=== PATIENT | female | born 1985 | race Caucasian/White ===

== ENCOUNTER 2018-08-03 15:53 | Outpatient (CLI) | payer OTHER, SELFPAY ==
[2018-08-03 17:02] LABS: *AMPHETAMINES SCREEN URINE Negative (Negative); *BARBITURATES SCREEN URINE Negative (Negative); *BENZODIAZEPINES SCREEN URINE Negative (Negative); Cannabinoids THC Negative (Negative); Cocaine Screen,Urine Negative (Negative); METHADONE URINE SCREEN Negative (Negative); OPIATES URINE SCREEN Negative (Negative)
[2018-08-03 17:09] LABS: Tricyclic Antidepressants Negative (Negative)
[2018-08-10 08:44] LABS: Buprenorphine Negative; Norbuprenorphine Negative
== END 2018-08-03 16:13 ==
PROVIDERS: PCP Nurse Practitioner Family; Visit Provider Nurse Practitioner
DX: Z34.91 Encounter for supervision of normal pregnancy, unspecified, first trimester (principal)
CPT/HCPCS: 80307; 87086

== ENCOUNTER 2018-08-04 10:43 | Outpatient (CLI) | payer OTHER, SELFPAY ==
[2018-08-04 11:19] LABS: Abs Immature Grans 0.02 k/cumm (0.0-0.09); Absolute Basophil Count 0.03 k/cumm (0.0-0.2); Absolute Eosinophil Count 0.11 k/cumm (0.0-0.7); Absolute Lymphocyte Count 1.49 k/cumm (1.2-3.4); Absolute Monocyte Count 0.47 k/cumm (0.11-0.7); Absolute Neutrophil Count 6.57 k/cumm (1.2-6.7); Basophils % 0.3; Eosinophils % 1.3; HCT 39.2 % (36.0-46.0); HGB 13.3 g/dL (12.0-15.5); Immature Grans % 0.2; Lymphocytes % 17.1; Mean Corp. HGB Concentration 33.9 g/dL (32.0-36.0); Mean Corpuscular Hemoglobin 30.9 pg (27.0-33.0); Mean Corpuscular Volume 91.2 fL (80-95); Mean Platelet Volume 9.2 fL (8.0-11.0); Monocytes % 5.4; Neutrophils % 75.7; Platelet Count 338 x1000/uL (130-400); RBC Distribution Width 13.1 % (11.7-14.6); White Blood Cell Count 8.69 k/cumm (4.4-10.8)
[2018-08-04 12:01] LABS: TSH (W/Ref FT4) 0.81 uIU/mL (0.358-3.74)
[2018-08-06 11:27] LABS: Hepatitis B Surface Ag Negative (NEGAT)
[2018-08-06 11:28] LABS: HIV-1/2 Ag & Ab Screen Negative (NEGAT)
[2018-08-06 11:47] LABS: Rubella IgG Ab (UVM) Positive; Syphilis Serology (RPR) Negative (Negative); Varicella IgG Antibody Positive
[2018-08-06 11:49] LABS: Hepatitis C Ab w Rflx HCV PCR Negative (NEGAT)
== END 2018-08-04 11:03 ==
PROVIDERS: PCP Nurse Practitioner Family; Visit Provider Nurse Practitioner
DX: Z34.91 Encounter for supervision of normal pregnancy, unspecified, first trimester (principal); Z11.4 Encounter for screening for human immunodeficiency virus [HIV]; Z11.59 Encounter for screening for other viral diseases; Z01.84 Encounter for antibody response examination
CPT/HCPCS: 36415; 80055; 86787; 86803; 86850; 86900; 86901; 87340; 87389; 84443; 86592; 86762

== ENCOUNTER 2018-08-08 09:19 | Outpatient (CLI) | payer SELFPAY ==
[2018-08-08 09:52] LABS: Kit/Specimen SENT
== END 2018-08-08 09:39 ==
PROVIDERS: PCP Nurse Practitioner Family; Visit Provider Advanced Practice Midwife
DX: Z34.81 Encounter for supervision of other normal pregnancy, first trimester (principal)
CPT/HCPCS: 36415

== ENCOUNTER 2018-09-28 00:17 | Outpatient (CLI) | payer OTHER, SELFPAY ==
--- NOTE | 2018-09-28 15:25 | DI.US_ITS ---
SYMPTOMS/DIAGNOSIS: SURVEY, Z34.90 OB ULTRASOUND: Many abnormalities cannot be diagnosed. A normal exam does not exclude a congenital anomaly. Radiology No. [id number] LMP: Exam Date: [facility] wks days on EDC ([facility]) 02/27/19 Confirmed: HISTORY: PREDICTED GESTATIONAL AGE NUMBER 18+2 weeks with a range of 18+1 weeks to 18+3 weeks. 1 Determined by___1STUS___LMP___HISTORY PLACENTA PRESENTATION Grade I Cephalic___ Anterior_X__Posterior___ Breech____ Right Left Transverse(head right___ Fundal___Low-lying___Previa___ Transverse(head left___ Varying__X____ BIOMETRY AMNIOTIC FLUID BPD: 42 mm 18+5 weeks Normal HC: 158 mm 18+5 weeks AC: 139 mm 19+2 weeks FL: 29 mm 19 weeks AMNIOTIC FLUID INDEX >26 WK CRL: mm weeks Cisterna Magna: 5 mm CI: 77 RUQ: LUQ Cerebellum: 1.95 cm EFW: 274 grams Percentile: 90th RLQ: LLQ Total: cms Composite AGE= 19 wks EDC by US: 02/22/2019 BIOPHYSICAL PROFILE ANATOMY IDENTIFIED SCORE 0/2 Heart: 4-Chamber_X__Rate:BPM LVOT:____X RVOT:__X Amniotic Fluid(>2cms)____ Stomach:___X____ Kidneys:___X____ Respirations (>30 secs) Bladder:____X____ Post. Fossa:__X Body Flex/Extension 3-vessel cord:__X Ventricles:___X Cord insertion:__X___ Lips:_X___ Extremity Flex/Extension Spinal morphology:___X Nose:__X___ Total Score= Palate:___X____ NS=not seen COMMENTS: The fetus was in variable position during the exam. The placenta is anterior. The biometric measurements correspond to 19 weeks 0 days. Small echogenic focus is noted in the left ventricle, which may be an incidental finding. There is a mild association with trisomy 21 and trisomy 13. No additional findings are identified. The amount of amniotic fluid appears normal. IMPRESSION: A 19-week 0-day fetus. An echogenic focus is seen in the left ventricle, which likely represents an incidental finding.
== END 2018-09-28 00:37 ==
PROVIDERS: PCP Nurse Practitioner Family; Visit Provider Nurse Practitioner
DX: Z34.92 Encounter for supervision of normal pregnancy, unspecified, second trimester (principal); Z36.89 Encounter for other specified antenatal screening
CPT/HCPCS: 76805

== ENCOUNTER 2018-10-05 01:26 | Outpatient (CLI) | payer OTHER, SELFPAY ==
[2018-10-09 16:54] LABS: AFP 110.2 ng/mL; Calculated age at EDD 32 years; Cigarette smoking status non-smoker; GA used in risk estimate Dates estimate; IVF Pregnancy No; Initial or repeat testing Initial testing; Insulin dependent diabetes No; Maternal Weight 111 lbs; Number of Fetuses 1; Physician Phone Number 802-748-7300; Prev Pregnancy w/NTD No; RECOMMENDED FOLLOW UP None.; Results Summary Normal risk
[2018-10-11 00:15] LABS: Result Summary NEGATIVE; Specimen WB Whole Blood
[2018-10-12 18:02] LABS: Specimen WB Whole Blood
== END 2018-10-05 01:46 ==
PROVIDERS: Advanced Practice Midwife; PCP Nurse Practitioner Family; Visit Provider Advanced Practice Midwife
DX: Z34.92 Encounter for supervision of normal pregnancy, unspecified, second trimester (principal); Z36.89 Encounter for other specified antenatal screening
CPT/HCPCS: 36415; 81329; 81220; 82105

== ENCOUNTER 2018-12-07 08:56 | Outpatient (CLI) | payer OTHER, SELFPAY ==
[2018-12-07 15:01] LABS: HCT 27.3 % (36.0-46.0); Mean Corp. HGB Concentration 32.6 g/dL (32.0-36.0); Mean Corpuscular Hemoglobin 28.7 pg (27.0-33.0); Mean Corpuscular Volume 88.1 fL (80-95); Mean Platelet Volume 8.5 fL (8.0-11.0); Platelet Count 230 x1000/uL (130-400); White Blood Cell Count 7.27 k/cumm (4.4-10.8)
[2018-12-07 15:06] LABS: Glucose,1 Hr (Glucola) 167 mg/dL (80-140); HGB 8.9 g/dL (12.0-15.5)
== END 2018-12-07 09:16 ==
PROVIDERS: PCP Nurse Practitioner Family; Visit Provider Advanced Practice Midwife
DX: Z34.93 Encounter for supervision of normal pregnancy, unspecified, third trimester (principal)
CPT/HCPCS: 36415; 82950; 85027

== ENCOUNTER 2018-12-12 02:16 | Outpatient (CLI) | payer OTHER, SELFPAY ==
[2018-12-12 07:37] LABS: HCT 27.7 % (36.0-46.0); HGB 8.8 g/dL (12.0-15.5); Mean Corp. HGB Concentration 31.8 g/dL (32.0-36.0); Mean Corpuscular Hemoglobin 27.9 pg (27.0-33.0); Mean Corpuscular Volume 87.9 fL (80-95); Mean Platelet Volume 8.9 fL (8.0-11.0); Platelet Count 221 x1000/uL (130-400); RBC 3.15 m/cumm (4.00-5.20); RBC Distribution Width 13.1 % (11.7-14.6); White Blood Cell Count 6.15 k/cumm (4.4-10.8)
[2018-12-12 09:10] LABS: Glucose 1 Hour 163 mg/dL
[2018-12-12 11:20] LABS: Glucose 3 Hour 92 mg/dL
== END 2018-12-12 02:36 ==
PROVIDERS: PCP Nurse Practitioner Family; Visit Provider Advanced Practice Midwife
DX: Z34.93 Encounter for supervision of normal pregnancy, unspecified, third trimester (principal)
CPT/HCPCS: 36410; 85027; 82951

== ENCOUNTER 2019-01-09 15:02 | Outpatient (CLI) | payer OTHER, SELFPAY ==
[2019-01-09 16:14] LABS: HCT 32.6 % (36.0-46.0); HGB 9.9 g/dL (12.0-15.5); Mean Corp. HGB Concentration 30.4 g/dL (32.0-36.0); Mean Corpuscular Volume 89.1 fL (80-95); Mean Platelet Volume 9.4 fL (8.0-11.0); Platelet Count 206 x1000/uL (130-400); RBC 3.66 m/cumm (4.00-5.20); RBC Distribution Width 16.3 % (11.7-14.6); White Blood Cell Count 7.44 k/cumm (4.4-10.8)
== END 2019-01-09 15:22 ==
PROVIDERS: PCP Nurse Practitioner Family; Visit Provider Advanced Practice Midwife
DX: O99.013 Anemia complicating pregnancy, third trimester (principal)
CPT/HCPCS: 36415; 85027

== ENCOUNTER 2019-01-18 01:29 | Outpatient (CLI) | payer OTHER, SELFPAY ==
--- NOTE | 2019-01-18 14:42 | DI.US_ITS ---
SYMPTOMS/DIAGNOSIS: SIZE GREATER THAN DATES, WEIGHT/NORAH AT 34 WEEKS, O26.843 OB ULTRASOUND: Predicted Gestational Age: Indication/History: 34+2 Wks Range: 33+2 to 35+2 Prior US done on: Determined by: First US LMP History EDC by prior US: X For multiple gestations: Baby PLACENTA: Grade: II-III Location: X Anterior Posterior PRESENTATION: X RT LT LOW LYING PREVIA Cephalic X Trans (Head RT LT ) Varied Breech BIOMETRY: Anatomy Identified: BPD: 89 mm 36+1 wks 4-chamber Heart X Heart Rate 132 BPM HC: 314 mm 35+1wks LVOT Post Fossa AC: 330 mm 36+6 wks RVOT Ventricles FL: 68 mm 35+1 wks Stomach Nose Bladder Lips Cisterna Magna: 1 mm CI: 90 Kidneys Palate Cerebellum: 1 cm 3-vessel cord Spine EFW: 2865 grms 91% Cord Insertion NS= not seen Composite Age (US) 35+6 wks Many abnormalities cannot be diagnosed. A normal exam does not exclude congenital abnormality. EDC by US: 02/16/19 Amniotic Fluid Index: Normal COMMENTS: Calcifications seen in the placenta. ? Early grade 3 placenta. RUQ: 7.19 LUQ: 0.84 RLQ: 3.67 LLQ: 1.32 Total: 13.0 cm Biophysical Profile: Score 0/2 NORAH (>2cm) Respirations (>30 sec) Body flexion/extension Extremity flexion/extension TOTAL SCORE OB ultrasound was performed utilizing limited third trimester protocol. biometry is consistent with gestational age of 35 weeks 6 days and an EDC of 02/16/19. Estimated weight is 2865 g, which is at the 91st percentile for predicted gestational age. Placenta is anterior with no evidence of placenta previa. The amniotic fluid index is 13 and there is visually a normal quantity of amniotic fluid. The fetus is in cephalic presentation. cardiac activity observed at a rate of 132 bpm.
== END 2019-01-18 01:49 ==
PROVIDERS: PCP Nurse Practitioner Family; Visit Provider Advanced Practice Midwife
DX: O26.843 Uterine size-date discrepancy, third trimester (principal); O43.893 Other placental disorders, third trimester
CPT/HCPCS: 76816

== ENCOUNTER 2019-01-30 14:33 | Outpatient (REF) | payer OTHER, SELFPAY ==
[2019-01-30 13:01] LABS: *AMPHETAMINES SCREEN URINE Negative (Negative); *BARBITURATES SCREEN URINE Negative (Negative); *BENZODIAZEPINES SCREEN URINE Negative (Negative); Cannabinoids THC Negative (Negative); Cocaine Screen,Urine Negative (Negative); METHADONE URINE SCREEN Negative (Negative); OPIATES URINE SCREEN Negative (Negative)
[2019-01-30 13:02] LABS: Tricyclic Antidepressants Negative (Negative)
[2019-02-04 09:43] LABS: Buprenorphine Negative
[2019-02-04 09:45] LABS: Norbuprenorphine Negative
== END 2019-01-30 14:53 ==
LOC: LBN 14:33
PROVIDERS: PCP Nurse Practitioner Family; Visit Provider Advanced Practice Midwife
DX: Z34.90 Encounter for supervision of normal pregnancy, unspecified, unspecified trimester (principal); Z36.85 Encounter for antenatal screening for Streptococcus B
CPT/HCPCS: 80307; 87081

== ENCOUNTER 2019-02-13 00:27 | Outpatient (CLI) | payer OTHER, SELFPAY ==
--- NOTE | 2019-02-13 15:30 | DI.US_ITS ---
Predicted Gestational Age: Indication/History: SIZE GREATER THAN DATES, 026.843 38 Wks Range: 37 to 39 Prior US done on: Determined by: First US LMP History EDC by prior US: 02/27/19 For multiple gestations: Baby PLACENTA: Grade: II-III Location: Anterior X Posterior PRESENTATION: RT LT LOW LYING PREVIA Cephalic X Trans (Head RT LT ) Varied Breech BIOMETRY: Anatomy Identified: BPD: 94 mm 38 wks 4 chamber Heart Heart Rate 147 BPM HC: 334 mm 38.1 wks LVOT Post Fossa AC: 353 mm 39.1 wks RVOT Ventricles FL: 75 mm 38.3 wks Stomach Nose Bladder Lips Cisterna Magna: mm CI: 86 Kidneys Palate Cerebellum: mm 3 vessel cord Spine EFW: 3574 grms 79 th % Cord Insertion NS= not seen Composite Age (US) 38.3 wks Many abnormalities cannot be diagnosed. A normal exam does not exclude congenital abnormality. EDC by US 02/24/19 Amniotic Fluid Index: Normal COMMENTS: RUQ: 4.51 LUQ: 0.00 RLQ: 2.34 LLQ: 1.30 Total: 8.2 cm Biophysical Profile: Score 0/2 NORAH (>2cm) Respirations (>30 sec) Body flexion/extension Extremity flexion/extension TOTAL SCORE Please see the OB ultrasound worksheet for complete details.
== END 2019-02-13 00:47 ==
PROVIDERS: PCP Nurse Practitioner Family; Visit Provider Advanced Practice Midwife
DX: O26.843 Uterine size-date discrepancy, third trimester (principal); Z34.93 Encounter for supervision of normal pregnancy, unspecified, third trimester
CPT/HCPCS: 76816

== ENCOUNTER 2019-02-13 01:49 | Outpatient (RCR) | payer OTHER, SELFPAY ==
[2019-01-23] MEDS: IRON SUCROSE COMPLEX 200 MG in Normal Saline 100 ML 110 MG IVPB (11:23)
[2019-01-23] MEDS: Normal Saline Flush 10 ML SYR IVP (11:29)
[2019-01-30] MEDS: Normal Saline Flush 10 ML SYR IVP (10:38)
[2019-01-30] MEDS: IRON SUCROSE COMPLEX 200 MG in Normal Saline 100 ML 110 MG IVPB (10:38)
[2019-02-06] MEDS: IRON SUCROSE COMPLEX 200 MG in Normal Saline 100 ML 110 MG IVPB (09:01)
[2019-02-06] MEDS: Normal Saline Flush 10 ML SYR IVP (09:01)
[2019-02-13] MEDS: IRON SUCROSE COMPLEX 200 MG in Normal Saline 100 ML 110 MG IVPB (09:35)
[2019-02-13] MEDS: Normal Saline Flush 10 ML SYR IVP (09:43)
== END 2019-02-15 23:59 | disposition home or self-care (01) ==
LOC: INF 01:49
PROVIDERS: PCP Nurse Practitioner Family; Visit Provider Advanced Practice Midwife
DX: O99.013 Anemia complicating pregnancy, third trimester (principal)
CPT/HCPCS: 36591; 80307; 96365; J1756

== ENCOUNTER 2019-02-13 15:24 | Outpatient (CLI) | payer OTHER, SELFPAY | END 2019-02-13 15:44 | PROVIDERS: PCP Nurse Practitioner Family; Visit Provider Advanced Practice Midwife | DX: O36.8130 Decreased fetal movements, third trimester, not applicable or unspecified (principal); Z3A.38 38 weeks gestation of pregnancy | CPT/HCPCS: 59025 ==

== ENCOUNTER 2019-02-16 17:00 | Inpatient (IN) | payer OTHER, SELFPAY ==
[2019-02-16] MEDS: Normal Saline Flush 10 ML SYR IVP (18:30)
[2019-02-16] MEDS: Lactated Ringers 1,000 ML 500 ML IV (18:45)
[2019-02-16 18:53] LABS: HCT 36.7 % (36.0-46.0); HGB 11.6 g/dL (12.0-15.5); Mean Corp. HGB Concentration 31.6 g/dL (32.0-36.0); Mean Corpuscular Volume 88.6 fL (80-95); Mean Platelet Volume 10.3 fL (8.0-11.0); Platelet Count 198 x1000/uL (130-400); RBC 4.14 m/cumm (4.00-5.20); RBC Distribution Width 20.1 % (11.7-14.6); White Blood Cell Count 7.23 k/cumm (4.4-10.8)
[2019-02-16] MEDS: Bupivacaine 0.25% Pres-Free 30 ML VIAL (19:12)
[2019-02-16] MEDS: fentaNYL 100 MCG/2 ML VIAL (19:13)
[2019-02-16] MEDS: FentaNYL/ROPIvacaine 2 mcg/ml and 0.1% 200 ML CADD Cassette EP (19:30)
[2019-02-16] MEDS: Lactated Ringers 1,000 ML 125 ML IV (19:36)
[2019-02-17] MEDS: miSOPROStol 200 MCG TAB 400 MCG SL (00:30)
[2019-02-17] MEDS: Hamamelis Leaf/Glycerin 100 EACH BOX PR (01:33)
[2019-02-17] MEDS: Acetaminophen 325 MG TAB 650 MG PO ×4 (01:36→22:53)
[2019-02-17] MEDS: Ibuprofen 600 MG TAB PO ×3 (01:37→17:14)
[2019-02-17 14:21] LABS: HCT 25.9 % (36.0-46.0); HGB 8.1 g/dL (12.0-15.5); Mean Corp. HGB Concentration 31.3 g/dL (32.0-36.0); Mean Corpuscular Volume 89.6 fL (80-95); Mean Platelet Volume 9.7 fL (8.0-11.0); Platelet Count 167 x1000/uL (130-400); RBC 2.89 m/cumm (4.00-5.20); RBC Distribution Width 19.8 % (11.7-14.6); White Blood Cell Count 10.24 k/cumm (4.4-10.8)
[2019-02-18] MEDS: Ibuprofen 600 MG TAB PO ×2 (06:33)
[2019-02-18] MEDS: Acetaminophen 325 MG TAB 650 MG PO (06:33)
[2019-02-18 07:40] LABS: HCT 27.2 % (36.0-46.0); HGB 8.4 g/dL (12.0-15.5); Mean Corp. HGB Concentration 30.9 g/dL (32.0-36.0); Mean Corpuscular Hemoglobin 28.1 pg (27.0-33.0); Mean Platelet Volume 9.6 fL (8.0-11.0); Platelet Count 164 x1000/uL (130-400); RBC 2.99 m/cumm (4.00-5.20); RBC Distribution Width 20.5 % (11.7-14.6); White Blood Cell Count 8.79 k/cumm (4.4-10.8)
[2019-02-18] MEDS: Normal Saline Flush 10 ML SYR IVP (09:18)
[2019-02-18] MEDS: IRON SUCROSE COMPLEX 200 MG in Normal Saline 100 ML 110 MG IVPB (09:21)
[2019-02-18] MEDS: Normal Saline Flush 10 ML SYR 500 ML IVP (09:28)
[2019-02-18] MEDS: Hydrocortisone 1% CR 30 GM TUBE TP (13:38)
[2019-02-18] MEDS: Docusate Sodium 100 MG CAP PO (13:39)
== END 2019-02-18 15:06 | disposition home or self-care (01) | DRG 807 ==
PROVIDERS: Advanced Practice Midwife; Admitting Provider Advanced Practice Midwife; PCP Nurse Practitioner Family; Visit Provider Advanced Practice Midwife
DX: O70.1 Second degree perineal laceration during delivery (principal); Z37.0 Single live birth; O76 Abnormality in fetal heart rate and rhythm complicating labor and delivery; Z3A.38 38 weeks gestation of pregnancy; O99.02 Anemia complicating childbirth; D64.89 Other specified anemias; O75.89 Other specified complications of labor and delivery; R55 Syncope and collapse; Z67.20 Type B blood, Rh positive
CPT/HCPCS: 36415; 85027; 86850; 86900; 86901; J1756; J3010; J3490

== ENCOUNTER 2019-02-27 01:43 | Outpatient (CLI) | payer OTHER, SELFPAY ==
[2019-02-27 13:32] LABS: HCT 34.8 % (36.0-46.0); HGB 10.5 g/dL (12.0-15.5); Mean Corp. HGB Concentration 30.2 g/dL (32.0-36.0); Mean Corpuscular Hemoglobin 27.9 pg (27.0-33.0); Mean Corpuscular Volume 92.3 fL (80-95); Mean Platelet Volume 8.4 fL (8.0-11.0); RBC 3.77 m/cumm (4.00-5.20); RBC Distribution Width 19.1 % (11.7-14.6); White Blood Cell Count 8.19 k/cumm (4.4-10.8)
[2019-02-27 13:57] LABS: Platelet Count 416 x1000/uL (130-400)
== END 2019-02-27 02:03 ==
PROVIDERS: PCP Nurse Practitioner Family; Visit Provider Advanced Practice Midwife
DX: D64.9 Anemia, unspecified (principal)
CPT/HCPCS: 85027

== ENCOUNTER → 2020-10-16 01:47 | Outpatient (CLI) | payer OTHER, SELFPAY ==
[2020-10-16 12:24] LABS: Kit/Specimen SENT
[2020-10-16 12:29] LABS: Abs Immature Grans 0.01 10^3/uL (0.0-0.06); Absolute Basophil Count 0.04 10^3/uL (0.0-0.2); Absolute Lymphocyte Count 0.91 10^3/uL (1.2-3.4); Absolute Monocyte Count 0.42 10^3/uL (0.1-0.8); Absolute Neutrophil Count 6.72 10^3/uL (1.2-6.7); Basophils % 0.5; Eosinophils % 1.2; HCT 36.1 % (36.0-46.0); HGB 12.2 g/dL (11.2-15.7); Immature Grans % 0.1; Lymphocytes % 11.1; MCH 29.9 pg (27.0-33.0); MCHC 33.8 % (32.0-36.0); MCV 88.5 fL (80-95); MPV 9.1 fL (8.0-11.0); Monocytes % 5.1; Nucleated RBC 0 %; Platelet Count 291 10^3/uL (130-400); RBC 4.08 10^6/uL (3.93-5.22); RDW 12.7 % (11.7-14.6); RDW-SD 41.2 fL
[2020-10-16 13:39] LABS: TSH (W/Ref FT4) 0.67 uIU/mL (0.36-3.74)
[2020-10-18 15:05] LABS: Syphilis Total Ab w/Reflex Nonreactive (Nonreactive)
[2020-10-19 10:01] LABS: Hepatitis B Surface Ag Negative (Negative)
[2020-10-19 10:21] LABS: Hepatitis C Ab w Rflx HCV PCR Negative (Negative)
[2020-10-19 11:33] LABS: Rubella IgG Ab (UVM) Positive (See Note); Varicella IgG Antibody Positive (See Note)
[2020-10-19 11:43] LABS: HIV-1/2 Ag & Ab Screen Negative (Negative)
== END ==
PROVIDERS: PCP Nurse Practitioner Family; Visit Provider Advanced Practice Midwife
DX: Z34.91 Encounter for supervision of normal pregnancy, unspecified, first trimester (principal); Z11.4 Encounter for screening for human immunodeficiency virus [HIV]; Z11.59 Encounter for screening for other viral diseases; Z01.84 Encounter for antibody response examination; Z13.29 Encounter for screening for other suspected endocrine disorder
CPT/HCPCS: 36415; 86787; 86803; 86850; 86900; 86901; 87340; 87389; 84443; 85025; 86762; 86780

== ENCOUNTER 2020-10-16 15:31 | Outpatient (REF) | payer OTHER, SELFPAY ==
[2020-10-16 14:13] LABS: *AMPHETAMINES SCREEN URINE Negative (Negative); *BARBITURATES SCREEN URINE Negative (Negative); *BENZODIAZEPINES SCREEN URINE Negative (Negative); Cannabinoids THC Negative (Negative); Cocaine Screen,Urine Negative (Negative); METHADONE URINE SCREEN Negative (Negative); OPIATES URINE SCREEN Negative (Negative)
[2020-10-16 14:19] LABS: Tricyclic Antidepressants Negative (Negative)
[2020-10-19 15:12] LABS: Chlamydia Result Negative (Negative); GC Result Negative (Negative)
[2020-10-23 22:09] LABS: Buprenorphine Negative ng/mL (Cutoff: 5.0); Norbuprenorphine Negative ng/mL (Cutoff: 2.5)
== END 2020-10-16 15:51 ==
LOC: LBN 15:31
PROVIDERS: Advanced Practice Midwife; PCP Nurse Practitioner Family; Visit Provider Advanced Practice Midwife
DX: Z34.91 Encounter for supervision of normal pregnancy, unspecified, first trimester (principal)
CPT/HCPCS: 80307; 87491; 87591; 87086

== ENCOUNTER 2020-11-13 09:50 | Outpatient (CLI) | payer OTHER, SELFPAY ==
[2020-11-17 12:03] LABS: Calculated age at EDD 34 years; Cigarette smoking status non-Smoker; GA used in risk estimate Scan estimate; IVF Pregnancy No; Insulin dependent diabetes No; Maternal Weight 109 lbs; Number of Fetuses 1; Physician Phone Number 802-748-7300; Prev Pregnancy w/NTD No; RECOMMENDED FOLLOW UP None.; Results Summary Normal risk
== END 2020-11-13 09:51 | disposition home or self-care (01) ==
PROVIDERS: PCP Nurse Practitioner Family; Visit Provider Advanced Practice Midwife
DX: Z34.92 Encounter for supervision of normal pregnancy, unspecified, second trimester (principal); Z36.89 Encounter for other specified antenatal screening
CPT/HCPCS: 36415; 82105

== ENCOUNTER 2021-02-12 02:16 | Outpatient (CLI) | payer OTHER, SELFPAY ==
[2021-02-12 11:30] LABS: HCT 29.5 % (36.0-46.0); HGB 9.4 g/dL (11.2-15.7); MCH 27.2 pg (27.0-33.0); MCHC 31.9 % (32.0-36.0); MCV 85.3 fL (80-95); MPV 9.1 fL (8.0-11.0); Platelet Count 231 10^3/uL (130-400); RBC 3.46 10^6/uL (3.93-5.22); RDW 14.1 % (11.7-14.6); RDW-SD 42.7 fL; WBC 7.86 10^3/uL (4.4-10.8)
== END 2021-02-12 02:17 | disposition home or self-care (01) ==
PROVIDERS: PCP Nurse Practitioner Family; Visit Provider Advanced Practice Midwife
DX: Z34.93 Encounter for supervision of normal pregnancy, unspecified, third trimester (principal); Z3A.29 29 weeks gestation of pregnancy
CPT/HCPCS: 36415; 85027

== ENCOUNTER 2021-03-12 05:20 | Outpatient (RCR) | payer OTHER, SELFPAY ==
[2021-02-26 12:20] LABS: HGB 9.5 g/dL (11.2-15.7)
[2021-02-26] MEDS: IRON SUCROSE COMPLEX 200 MG in Normal Saline 100 ML 440 MG IVPB (12:28)
[2021-02-26] MEDS: Normal Saline Flush 10 ML SYR IVP (12:29)
[2021-03-05 11:48] LABS: HGB 9.3 g/dL (11.2-15.7)
[2021-03-05] MEDS: Normal Saline Flush 10 ML SYR IVP (12:09)
[2021-03-05] MEDS: IRON SUCROSE COMPLEX 200 MG in Normal Saline 100 ML 440 MG IVPB (12:09)
[2021-03-12 14:09] LABS: HGB 10.4 g/dL (11.2-15.7)
[2021-03-12] MEDS: IRON SUCROSE COMPLEX 200 MG in Normal Saline 100 ML 440 MG IVPB (14:39)
[2021-03-12] MEDS: Normal Saline Flush 10 ML SYR IVP (14:39)
== END 2021-03-17 23:59 | disposition home or self-care (01) ==
LOC: INF 05:20
PROVIDERS: PCP Nurse Practitioner Family; Visit Provider Advanced Practice Midwife
DX: O99.013 Anemia complicating pregnancy, third trimester (principal); D64.9 Anemia, unspecified
CPT/HCPCS: 36415; 96365; 85018; J1756

== ENCOUNTER 2021-03-19 07:00 | Outpatient (RCR) | payer OTHER, SELFPAY ==
[2021-03-19] MEDS: Normal Saline Flush 10 ML SYR IVP (07:15)
[2021-03-19 07:26] LABS: HGB 10.8 g/dL (11.2-15.7)
[2021-03-19] MEDS: IRON SUCROSE COMPLEX 200 MG in Normal Saline 100 ML 440 MG IVPB (07:32)
== END 2021-04-17 23:59 | disposition home or self-care (01) ==
LOC: INF 07:00
PROVIDERS: PCP Nurse Practitioner Family; Visit Provider Advanced Practice Midwife
DX: O99.013 Anemia complicating pregnancy, third trimester (principal); D64.9 Anemia, unspecified
CPT/HCPCS: 36415; 96365; 85018; J1756

== ENCOUNTER 2021-04-02 17:20 | Outpatient (REF) | payer OTHER, SELFPAY ==
[2021-04-02 21:22] LABS: *AMPHETAMINES SCREEN URINE Negative (Negative); *BARBITURATES SCREEN URINE Negative (Negative); *BENZODIAZEPINES SCREEN URINE Negative (Negative); Cannabinoids THC Negative (Negative); Cocaine Screen,Urine Negative (Negative); METHADONE URINE SCREEN Negative (Negative); OPIATES URINE SCREEN Negative (Negative); Tricyclic Antidepressants Negative (Negative)
[2021-04-08 09:46] LABS: Buprenorphine Negative ng/mL (Cutoff: 5.0); Norbuprenorphine Negative ng/mL (Cutoff: 2.5)
== END 2021-04-02 17:21 | disposition home or self-care (01) ==
LOC: LBN 17:20
PROVIDERS: Advanced Practice Midwife; PCP Nurse Practitioner Family; Visit Provider Nurse Practitioner Family
DX: Z34.93 Encounter for supervision of normal pregnancy, unspecified, third trimester (principal); Z36.85 Encounter for antenatal screening for Streptococcus B; Z3A.36 36 weeks gestation of pregnancy
CPT/HCPCS: 80307; 87081

== ENCOUNTER 2021-04-25 05:54 | Inpatient (IN) | payer OTHER, SELFPAY ==
[2021-04-25] VITALS (30 sets, daily range): BP systolic 90–141; BP diastolic 43–77; PULSE 57–80; RESP 16–20; TEMP 36.5–36.9; O2SAT 98–100; BMI 24.0
--- NOTE | 2021-04-25 06:03 | W.PM.OBHPL1 ---
Date of service: 04/25/21 Time of Service: 06:03 Assessment and Plan Assessment and plan (1) Spontaneous onset of labor: Status: Acute Assessment and plan: A: 35 yo @ 39+5 wks Spontaneous active labor GBS negative, category 1 tracing Low risk for SD and PPH Desires regional anesthesia P: Admit to BC, CBC and T&S, COVID swab Initiate IV fluids and notify ARCHITECTURAL MANAGER Anticipate (2) 39 weeks gestation of : Status: Acute OB-HPI Labor/Delivery History of Present Illness Reason for Visit: term 1 abor Chief Complaint: Uterine Contractions. JOSEPHINE Calculator Estimated Delivery Date Method Current WG Current Estimate 04/27/21 LMP (Certain) 39w 5d Other Estimates 04/27/21 Ultrasound #1 39w 5d History of Present Expected Delivery Route/Plan - CNM FOB/ - Geovanni Jones BG Reta Morrowy Planning for epidural GBS negative Specific Issues/Plan 1. Known CF and SMA carrier screen negative. 1a. [place] drawn 10/16/20:result 10/26 low risk X 3, female, patient aware 1b. AFP single marker drawn 11/13: low risk for NTD 2. Declined early glucola (d/t hx macrosomia), did 14 days of QID home monitoring, all results nml 2a. Pt chooses to repeat 14 days of QID testing @ 26-28 wks for GDM screening, alt tx form signed 2b. Blood sugars QID 26 -28 wk results: fasting all WNL, one elevation after dinner, will test 4 more days. 2c. Discussed BG's with MD, will only test 4 times a day for the 2 days prior to next visit and if normal can discontinue. 02/12/21 KH 3. 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 Appt @ [facility] 11/27/20: normal renal system 4. Has 3 finger diastasis, desires PT referral 5. Had COVID vaccine, 2nd one given Oct 15. is fully vaccinated. 6. Anemia H and H 9.4 and 29.5, iron infusion weekly ordered 02/12. 6a. Hgb 11.5 - discontinue iron infusions. Assessment: History Reviewed & Current Review of Systems All systems reviewed & are unremarkable except as noted in HPI and below Constitutional Constitutional: Reports system reviewed and no additional complaints, except as documented Cardiovascular Cardiovascular: Reports system reviewed and no additional complaints, except as documented Respiratory Respiratory: Reports system reviewed and no additional complaints, except as documented Gastrointestinal Gastrointestinal: Reports system reviewed and no additional complaints, except as documented Genitourinary Genitourinary: Reports system reviewed and no additional complaints, except as documented Musculoskeletal Musculoskeletal: Reports system reviewed and no additional complaints, except as documented Integumentary/Breasts Skin/Breast: Reports system reviewed and no additional complaints, except as documented Endocrine Endocrine: Reports system reviewed and no additional complaints, except as documented REPLACED BY [facility] Medical History (Updated 04/25/21 @ 06:08 by Jessenia Inman) Anemia affecting in third trimester Neoplasm of unspecified nature of bone, soft tissue, 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 Oral contraception initial prescription Postnasal drip (11/07/16) Routine follow-up 6 wks PP Is pumping breastmilk so baby is getting both breastmilk and formula No breast problems currently PAP done 2017 and nml, next one due in 3 yrs (had abn PAP 2008) Pt desires PAP q 2 yrs for now, will have done in 2020. Seeing manager retirement for acne @ [facility] next month. Desires POP's for contraception No sexually active yet, stitches have healed well. Nml bowel and bladder function Given [employer] website address so she can look up dermatology meds Satisfied with experience, EPDS score is 0 Rx sent for POP to pharmacy Scoliosis brace as teen. Social History Smoking/Tobacco Use Status: Never Smoking risk assessment performed?: Yes Alcohol Intake: never Substance use type: does not use, former substance user, marijuana, crack/cocaine, heroin, amphetamines, hallucinogens, tranquilizers, sedatives, opiates, painkillers, club/clothing designer drugs, inhalants, IV drugs, methamphetamine, prescription drug, unknown and other Household members: spouse current occupation: dentist Do you think of yourself as: straight/heterosexual What is your relationship status?: Panel score (0-1 are the most socially isolated patients): 1 What type of physical activity do you participate in: normal ROM and activity Special joe needs: Yes Agree to transfusion: Yes Female Reproductive History Menstrual Duration of menses: 6-7 days control method: none History History 3 Para 2 Hx # Term Pregnancies 2 Multiple births 0 Hx # Pregnancies 0 Ectopic pregnancies 0 AB induced 0 Hx Number of Living Children 2 AB spontaneous 0 Past Pregnancies Del. Date GA/Weeks # Outcome Route Wgt Sex Labor Lgth Anesthesia Location Prov Complic Unknown 10/03/09 40 No Successful vaginal 8 lb Female other 02/17/19 38 No Successful vaginal 9 lb 5 oz Female [facility] Babita Longoria CNM Delivery Date: No notes to display Delivery Date: 10/03/09 broken tailbone from delivery, augmentation of labor. Eliu Kaur Delivery Date: 02/17/19 epidural; shallow 2nd degree laceration, repaired w/suture; Placenta had marked calcification on maternal surface. Bright bleeding and clots after placenta, pit 20 Units infused rapidly continued to have small amounts of bright bleeding, misoprostol 400 mcg sublingual with good effect Tegan Morel Allergies and Home Medications Allergies Allergy/AdvReac Type Severity Reaction Status Date / Time No Known Allergies Allergy Verified 04/25/21 06:12 Home Medications Medication Instructions Recorded Confirmed Type biotin 2,500 mcg capsule See Rx Instructions PO DAILY cap 10/26/18 04/23/21 History ascorbic acid (vitamin C) 500 mg 1,000 mg PO DAILY cap 09/04/20 04/23/21 History capsule multivitamin 2 tab PO DAILY tab 09/04/20 04/23/21 History breast pump #1 ea 12/04/20 04/23/21 Rx levomefolate calcium 7.5 mg tablet See Rx Instructions PO DAILY 01/15/21 04/23/21 History blood builder PO 02/12/21 04/23/21 History omeprazole magnesium 20 mg 20 mg PO DAILY #60 tab 02/26/21 04/23/21 Rx tablet,delayed release Exam Physical Exam Vital signs: BP 119/69, pulse 76 Vital Signs Reviewed: Yes Constitutional Constitutional: moderate distress Detailed Labor and Delivery Exam Dilation: 5 Effacement (%): 100 station: 0 Cervix position: mid Consistency: soft Amniotic Membrane Status: Intact Contraction Frequency(min): q 2-3 Contraction Duration(sec): 60-80 Contraction Intensity: Moderate/Strong Fetus A Heart Rate Baseline: 130 Monitor Accelerations: 15 X 15 Monitor Decelerations: None Variability: Moderate (6-25 BPM) Presentation: Cephalic Categories: Category I Est. Weight: 8 lb 9.568 oz Est. Weight: 3900 gms HEENT Exam HEENT Exam: Normal Neck Exam Neck Exam: Normal Chest/Brest/Axilla Exam Chest Exam: Normal Breast Exam Breast Exam: Not Done Respiratory Exam Respiratory Exam: Normal Cardiovascular Exam Cardiovascular Exam: Normal Abdominal Exam Abdominal Exam: Normal (Gravid) Rectal Exam Rectal Exam: Not Done Exam Exam: Normal Extremities Exam Extremities Exam: Normal Back/Spine/Pelvis Exam Back Exam: Normal Pelvis Adequate: Yes Skin Exam Skin Exam: Normal Neurological Exam Neurological Exam: Normal Psychiatric Exam Psychiatric Exam: Normal Results Results Group Beta Strep: Negative Blood Type: B+ Rubella Status: Immune Varicella Immunity: Immune Risk Assessment Risk for Shoulder Dystocia Historical/Initial OB: POSITIVE FOR: Previous Macrosomia; NEGATIVE FOR: Pelvic Abnormality, Pre- BMI>30 or Previous Shoulder Dystocia Increased Risk?: No Counselin10/16/20 prev. del. 9.5 lbs will do f/s bs x 2 weeks.al At 16 wks, all blood sugars have been nml Delivery Plan @ 36wks: pelvis proven to 9.5 lbs Risk for Pre-Eclampsia Daily Dose ASA Indicated: No Date Initiated/Initials: 10/16/20 al Yes, if one or more: NEGATIVE FOR: Hx Pre-E/Gest HTN, Chronic HTN, Multiple Gestation, Pre-gestational DM, Renal Disease, Systemic Lupus or APA Syndrome Yes, if 2 or more: NEGATIVE FOR: Nulliparity, Age>= 35 yrs, >10yr btwn pregnancies, BMI>30, ethinicty, Mother/Sister w/ Pre-E or Previous IUGR Risk for Post- Hemorrhage Initial: NEGATIVE FOR: Multiple Gestation, Previous PPH, Known Clotting Deficiency, Grand Multiparity or Anticoagulation At Risk?: Yes Counseled re: Active Management: Yes Risks Reviewed Risks Reviewed Upon Admission: Yes
[2021-04-25 06:32] LABS: HGB 13.1 g/dL (11.2-15.7); MCH 28.2 pg (27.0-33.0); MCV 88.2 fL (80-95); MPV 9.8 fL (8.0-11.0); Platelet Count 188 10^3/uL (130-400); RBC 4.65 10^6/uL (3.93-5.22); RDW 19.5 % (11.7-14.6); RDW-SD 62.4 fL; WBC 8.58 10^3/uL (4.4-10.8)
[2021-04-25] MEDS: fentaNYL 100 MCG/2 ML VIAL IT (07:00)
[2021-04-25] MEDS: Bupivacaine 0.25% Pres-Free 10 ML VIAL IT (07:00)
--- NOTE | 2021-04-25 07:07 | ANES.PREOP_ITS ---
General Info Date of Service Date Performed: 04/25/21 Height: 5 ft Weight: 56 kg Body Mass Index (BMI): 24.0 Meds Allergies and Home Medications Allergies Allergy/AdvReac Type Severity Reaction Status Date / Time No Known Allergies Allergy Verified 04/25/21 06:12 Home Medication Medication Instructions Recorded biotin 2,500 mcg capsule See Rx Instructions PO DAILY cap 10/26/18 ascorbic acid (vitamin C) 500 mg 1,000 mg PO DAILY cap 09/04/20 capsule multivitamin 2 tab PO DAILY tab 09/04/20 breast pump #1 ea 12/04/20 levomefolate calcium 7.5 mg tablet See Rx Instructions PO DAILY 01/15/21 blood builder PO 02/12/21 omeprazole magnesium 20 mg 20 mg PO DAILY #60 tab 02/26/21 tablet,delayed release Current Visit Medications: Current Medications Generic Name Dose Route Start Last Admin Trade Name Freq PRN Reason Stop Dose Admin Sodium Chloride 500 mls @ 0 mls/hr 04/25/21 05:53 Saline 500ml Bag IV PRN PRN As Directed Ringer's Solution 1,000 mls @ 125 mls/hr 04/25/21 06:00 IV INFUSION TAYLOR Ringer's Solution 500 mls @ 500 mls/hr 04/25/21 06:27 IV 04/25/21 07:26 BOLUS ONE IV Miscellaneous Supplies 1 each 04/25/21 06:00 Iv Access IV DIRECTED TAYLOR Sodium Chloride 0 ml 04/25/21 05:53 Normal Saline Flush 10 Ml Syr IVP PRN PRN PFSH Active Problems Active Problems: Problem Status Onset Code 39 weeks gestation of Z3A.39 Spontaneous onset of labor Intends to breastfeed Positive test Z32.01 Anemia affecting in third trimester O99.013 Scoliosis M41.9 Z34.90 Postnasal drip 11/07/16 R09.82 Neoplasm of unspecified nature of bone, soft tissue, and skin 11/07/16 D49.2 Medical History Medical History (Updated 04/25/21 @ 06:08 by Jessenia Inman) Anemia affecting in third trimester Neoplasm of unspecified nature of bone, soft tissue, 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 Oral contraception initial prescription Postnasal drip (11/07/16) Routine follow-up 6 wks PP Is pumping breastmilk so baby is getting both breastmilk and formula No breast problems currently PAP done 2018 and nml, next one due in 3 yrs (had abn PAP 2008) Pt desires PAP q 2 yrs for now, will have done in 2019. Seeing television installer helper for acne @ [facility] [place] next month. Desires POP's for contraception No sexually active yet, stitches have healed well. Nml bowel and bladder function Given [employer] website address so she can look up dermatology meds Satisfied with experience, EPDS score is 0 Rx sent for POP to pharmacy Scoliosis brace as teen. Tobacco Smoking/Tobacco Use Status: Never Alcohol Alcohol Intake: never Substance Use Substance use type: does not use, former substance user, marijuana, crack/ cocaine, heroin, amphetamines, hallucinogens, tranquilizers, sedatives, opiates, painkillers, club/industrial designer drugs, inhalants, IV drugs, methamphetamine, prescription drug, unknown and other Prental History History 3 Para 2 Hx # Term Pregnancies 2 Multiple births 0 Hx # Pregnancies 0 Ectopic pregnancies 0 AB induced 0 Hx Number of Living Children 2 AB spontaneous 0 Past Pregnancies Del. Date GA/Weeks # Outcome Route Wgt Sex Labor Lgth Anesthes ia Location Prov Complic Unknown 10/03/09 40 No Successful vaginal 3628.739 g Female other 02/17/19 38 No Successful vaginal 4224.[address] [facility] Babita Longoria CNM Delivery Date: No notes to display Delivery Date: 10/03/09 broken tailbone from delivery, augmentation of labor. Eliu Kaur Delivery Date: 02/17/19 epidural; shallow 2nd degree laceration, repaired w/suture; Placenta had marked calcification on maternal surface. Bright bleeding and clots after placenta, pit 20 Units infused rapidly continued to have small amounts of bright bleeding, misoprostol 400 mcg sublingual with good effect Tegan Morel Vital Signs and Lab Results Vital Signs Most Recent Vital Signs in EMR: Most Recent Vital Signs Temp Pulse BP Pulse Ox 36.5 C 61 108/52 L 100 04/25/21 07:05 04/25/21 07:05 04/25/21 07:05 04/25/21 06:56 Lab Results Result Diagrams: 04/25/21 06:25 Blood Type / Crossmatch: Patient ABO/Rh B Positive 04/25/21 06:25 04/25/21 Complete Blood Count: White Blood Count 8.58 10^3/uL (4.4-10.8) 04/25/21 06:25 04/25/21 Red Blood Count 4.65 10^6/uL (3.93-5.22) 04/25/21 06:25 04/25/21 Hemoglobin 13.1 g/dL (11.2-15.7) 04/25/21 06:25 04/25/21 Hematocrit 41.0 % (36.0-46.0) 04/25/21 06:25 04/25/21 Platelet Count 188 10^3/uL (130-400) 04/25/21 06:25 04/25/21 Complete Metabolic Panel: No Data to Display Liver Function Panel: No Data to Display Coagulation Panel: No Data to Display Cardiac Panel: No Data to Display Arterial Blood Gas: No Data to Display Venous Blood Gas: No Data to Display Pancreas Panel: No Data to Display Thyroid Panel: No Data to Display Infectious Disease: Coronavirus (COVID-19)(PCR) Pending 04/25/21 05:55 04/25/21 Coronavirus 2019 Source Pending 04/25/21 05:55 04/25/21 Blood Cultures: No Data to Display Toxicology Panel: Urine Amphetamines Screen Negative (Negative) 04/02/21 15:00 04/02/21 Urine Benzodiazepines Screen Negative (Negative) 04/02/21 15:00 04/02/21 Urine Barbiturates Screen Negative (Negative) 04/02/21 15:00 04/02/21 Urine Cocaine Screen Negative (Negative) 04/02/21 15:00 04/02/21 Urine Methadone Screen Negative (Negative) 04/02/21 15:00 04/02/21 Urine Opiates Screen Negative (Negative) 04/02/21 15:00 04/02/21 Ur Tricyclic Antidepressants Screen Negative (Negative) 04/02/21 15:00 04/02/21 Ur Tetrahydrocannabinol (THC) Scrn Negative (Negative) 04/02/21 15:00 04/02/21 Panel: No Data to Display Anesthesia Assessment and Plan Anesthesia History Personal History: No History of Anesthesia Complications Family History: No Family History of Anesthesia Complications Exercise Tolerance Exercise Tolerance: Metabolic Equivalents>4 Pertinent Negatives Pertinent Negatives: No Major Cardiovascular Symptoms or Complaints and No Major Pulmonary Symptoms or Complaints Cardiac & Pulmonary Exam Cardiac Exam: Normal S1/S2 Heart Sounds Pulmonary Exam: Clear Bilateral Breath Sounds Airway Exam Known Difficult Airway: No Mallampati Class: 2 Mouth Opening: Normal (> 3cm) Thyromental Distance: Greater than 3 cm Neck Range of Motion: Full ROM Neck Circumference: Normal Teeth Condition: Normal Dentition ASA Classification ASA Score: ASA 2 Emergency Case?: No NPO Status NPO Status: Full Stomach Status Status: Confirmed Anesthesia Plan Resuscitation Status: Full Code Anesthesia Technique: Spinal Anesthesia Airway Planned: Natural Airway Pain Management: Intrathecal Analgesia Monitors Used: Standard Monitors
--- NOTE | 2021-04-25 07:10 | W.ANESPROC ---
Intrathecal Analgesia Date Performed: 04/25/21 Procedure Time: 06:58 Requesting Provider: Henny Procedure Location: Obstetrics Reason Performed: Labor Intrathecal Analgesia Standard Monitors Applied: Blood Pressure and SpO2 Patient Position: Sitting Timeout Performed: Yes Sedation Given (Indicate Dose Given): No Sedation given Patient Mental Status: Awake Sterility: Hand Hygiene, Surgical Cap, Surgical Mask, Sterile Gloves, Sterile Drape/Sheet, Eye Protection and Chlorhexidine Placement Site: L3-L4 Interspace Spinal Needle Type: Sprotte 25 Gauge Needle Length: 3.5 Inch Spinal Procedure: Site Prepped, Sterile Drape Placed, 1% Lidocaine to skin and subcutaneous tissue with 25G needle, Introducer Needle Used, Spinal Needle Placed, Negative Heme, Positive CSF Flow and Medication Injected Paresthesia: None Spinal Local Anesthetic (Indicate Dose Given): Bupivacaine 0.25% PF (ml) (1 mL) Dose:: 1ml Additives (Indicate Dose Given): Fentanyl PF (20 mcg) Dose:: 20mcg Ultrasound: Not Used Number of Attempts (See previous attempts in note section): 1 Procedure Tolerated: No Complications Procedure Outcome: Successful Procedure Comment: Patient declined Duramorph Performed By: Keiko Robbins
[2021-04-25 07:24] LABS: Source Nasal/Nares
--- NOTE | 2021-04-25 07:49 | W.PM.OBNL1 ---
Date of service: 04/25/21 Time of Service: 07:49 Informed Consent Informed Consent: Regional Anesthesia and Risk,Benefits,Alternatives Discussed Pelvic Exam Dilation: 7 Effacement (%): 100 station: 0 Cervix Position: mid Consistency: soft Vaginal Exam Presentation: Cephalic Contractions Monitor Mode: External Contraction Frequency(min): q 2-3 minutes Intensity: Moderate/Strong Fetus A Monitor: External (US) Heart Rate Baseline: 130 Variability: Moderate (6-25 BPM) Categories: Category I Accelerations: 15 X 15 Decelerations: None Amniotic Membrane Status: Intact Assessment and Plan Assessment and plan (1) Spontaneous onset of labor: Status: Acute Assessment and plan: A: multipara in labor category 1 tracing P: Intrathecal placed with good effect Offer AROM, anticipate Objective Abnormal lab results 04/25/21 Range/Units 06:25 RDW 19.5 H (11.7-14.6) % Temp Pulse BP Pulse Ox 97.7 F 80 106/44 L 100 04/25/21 07:05 04/25/21 07:49 04/25/21 07:49 04/25/21 06:56 Laboratory Results WBC 8.58 10^3/uL (4.4-10.8) 04/25/21 06:25 RBC 4.65 10^6/uL (3.93-5.22) 04/25/21 06:25 Hgb 13.1 g/dL (11.2-15.7) 04/25/21 06:25 Hct 41.0 % (36.0-46.0) 04/25/21 06:25 MCV 88.2 fL (80-95) 04/25/21 06:25 MCH 28.2 pg (27.0-33.0) 04/25/21 06:25 MCHC 32.0 % (32.0-36.0) 04/25/21 06:25 RDW 19.5 % (11.7-14.6) H 04/25/21 06:25 Plt Count 188 10^3/uL (130-400) 04/25/21 06:25 MPV 9.8 fL (8.0-11.0) 04/25/21 06:25 COVID-19 Source Nasal/Nares 04/25/21 07:10 Patient ABO/Rh B Positive 04/25/21 06:25 Antibody Screen NEGATIVE 04/25/21 06:25 Subjective Interval history since last seen: Very comfortable with intrathecal in place Interventions Pain Management Interventions: Intrathecial Start Date: 04/25/21 , Keiko Robbins CRNA . Results Hemoglobin/Hematocrit: Hgb 13.1 g/dL (11.2-15.7) 04/25/21 06:25 Hct 41.0 % (36.0-46.0) 04/25/21 06:25 Abnormal Lab Findings: Abnormal Labs 04/25/21 06:25 RDW 19.5 H
[2021-04-25 08:30] LABS: COVID-19 PCR Negative (Negative)
[2021-04-25] MEDS: Oxytocin/Normal Saline 30 UNIT/500 ML BAG 95 UNITS IV (09:55)
[2021-04-25] MEDS: Oxytocin 10 UNITS/ML VIAL IM (10:00)
--- NOTE | 2021-04-25 10:35 | OBVDS_ITS ---
Date of service: 04/25/21 Time of Service: 10:35 OB Labor/ Delivery Information Baby A Delivery Delivery Method: Spontaneaous Presentation: Cephalic Cephalic Position: Vertex Vertex Position: Left Occipital Anterior Breech Position: N/A Cord Description-Baby A: 3 Vessels and Nuchal Cord (loose x2 reduced over head, also left nuchal hand reduced by delivery of arm prior to anterior shoulder) Amniotic Fluid: Clear Delivery Outcome: Liveborn Transferred: Remains with Mother Note: Pt rested after intrathecal took effect, then AROM for clear fluid at 9 cm with vtx 0 station. Pt reported gradual increase in pelvic pressure, SVE for anterior lip with vtx +2, pt encouraged to push for manual reduction of lip, 2nd stage huddle completed, small anterior lip persisted, pt to H&K position on the bed where lip reduced, excellent pushing efforts results in as pt spontaneously maged to standing on the bed for delivery of the head then returned to H&K position to complete delivery. Nuchal cord loose x1 reduced over head, left nuchal hand reduced by delivery of posterior arm followed by easy anterior shoulder delivery, as body emerged a 2nd loop of nuchal cord noted and unwound from neck, vigorous female infant passed between thighs from behind pt to front and into her arms. Pt then assisted to semifowlers, Pitocin IV bolus begun and 10 units given IM, cord ceased pulsations, was clamped and cut by FOB, cord blood collected, Sal placenta delivered intact with 3 VC, cord measured 35 inches in length. First degree perineal laceration repaired with 3.0 Vicryl under intrathecal anesthesia still in effect. Fundus firm below umbilicus, lochis minimal, EBL 300 ml. Apgars 8/9, weight 4085 gms Providers Nurse Ic Design Engineer: Jessenia Inman Nurse: Juana Barrios Nurse: Gabe Vivas Labor/Delivery Information Number of Babies in Womb: 1 Reason Steroids Not Administered: N/A Group Beta Strep: Negative Antibiotics Administered: No Rubella Status: Immune Blood Type: B+ Varicella Immunity: Immune Born En Route: No Maternal Complications: None Shoulder Dystocia: No Stages of Labor Onset of Labor Date: 04/24/21 Onset of Labor Time: 22:00 Complete Dilatation Date: 04/25/21 Complete Dilatation Time: 09:28 Labor - Stage 1 Duration: 24 hours and 0 minutes ROM Baby A: 04/25/21 ROM Baby A: 08:08 Infant Delivery Date-Baby A: 04/25/21 Infant Delivery Time-Baby A: 09:52 Labor Stage 2 Duration: 24 minutes Placenta Delivery Date-Baby A: 04/25/21 Placenta Delivery Time-Baby A: 10:03 Labor-Stage 3 Duration: 11 minutes Total Length of Labor-Baby A: 11 hours and 52 minutes Placenta Cultured: No Placenta Status: Delivered Baby A Infant Gender: Female Gestational Status: Term (39-41.6 wks) Gestational Age in Weeks/Days: 39 Weeks and 5 Days weight: 9 lb 0.094 oz Weight Comment: 4085 gms Score-1 Minute Interval(Baby A) Heart Rate-1 minute: 100 BPM or Greater Respiratory Effort- 1 minute: Spontaneous/Strong Cry Muscle Tone-1 minute: Active Movement Reflex Response-1 minute: Prompt Response Color-1 minute: Pallor or Cyanosis Total Score-1 minute: 8 Score-5 Minute Interval(Baby A) Heart Rate- 5 minute: 100 BPM or Greater Respiratory Effort-5 minute: Spontaneous/Strong Cry Muscle Tone-5 minute: Active Movement Reflex Response-5 minute: Prompt Response Color-5 minute: Bluish Hands or Feet Total Score- 5 minute: 9 Procedure Procedures: Cord Blood Collection Interventions Repair of Laceration Type: Perineal , Laceration Extension: First Degree . Sponge Count Correct: Yes , Sharp Count Correct: Yes . Laceration Repair Note: sutured with 3.0 Vicryl, intrathecal anesthesia
[2021-04-25] MEDS: Dibucaine 1% 28 GM TUBE TP (12:58)
[2021-04-25] MEDS: Acetaminophen 325 MG TAB 650 MG PO (13:28)
[2021-04-25] MEDS: Ibuprofen 600 MG TAB PO ×2 (13:30→22:47)
[2021-04-25] MEDS: Normal Saline Flush 10 ML SYR IVP (14:32)
[2021-04-26 00:42] VITALS: BP 109/62; PULSE 65; RESP 18; TEMP 36.8
[2021-04-26] MEDS: Ibuprofen 600 MG TAB PO (07:30)
[2021-04-26 07:49] VITALS: BP 112/74; PULSE 57; RESP 18; TEMP 36.7; O2SAT 98
[2021-04-26 07:59] LABS: HCT 35.5 % (36.0-46.0); HGB 11.2 g/dL (11.2-15.7); MCH 28.1 pg (27.0-33.0); MCHC 31.5 % (32.0-36.0); MCV 89.2 fL (80-95); MPV 9.9 fL (8.0-11.0); Platelet Count 200 10^3/uL (130-400); RBC 3.98 10^6/uL (3.93-5.22); RDW 19.8 % (11.7-14.6); RDW-SD 64.2 fL; WBC 10.78 10^3/uL (4.4-10.8)
--- NOTE | 2021-04-26 08:03 | OBPPV_ITS ---
Date of service: 04/26/21 Time of Service: 08:03 Assessment and Plan Assessment and plan (1) Term delivered: Status: Acute Assessment and plan: A: nml PPD#1 satisfied with experience off to a good start adequate support at home from , family, friends P: discharge today when baby released BCM vasectomy planned, pt aware to use condoms during interval f/up @ 2 & 6 wks written instructions reviewed and given to pt Subjective Subjective Patient comments: Pain well controlled, Tolerating diet and Flatus present [place] baby status: Doing well, Nursing well, Rooming in and Strong Bonding Observed feeding status: Exclusively breast feeding Exam Physical Exam Vital signs: Temp Pulse Resp BP Pulse Ox 98.1 F 57 L 18 112/74 98 04/26/21 07:49 04/26/21 07:49 04/26/21 07:49 04/26/21 07:49 04/26/21 07:49 Vital Signs Reviewed: Yes Constitutional Constitutional: no acute distress HEENT Exam HEENT Exam: Normal Neck Exam Neck Exam: Normal Breast Exam Bilateral: Breast Exam: Normal and Soft Nipple Exam: Normal and Bruised (right nipple bruise, left nipple uninjured, milk easily expressed bilaterally) Respiratory Exam Respiratory Exam: Normal Cardiovascular Exam Cardiovascular Exam: Normal Abdominal Exam Abdomen: Diastasis (4 finger diastasis) Fundal Exam Fundus: Below Umbilicus and Firm Rectal Exam Rectal Exam: Normal Exam Perineum: Normal and Repair Intact Extremities Exam Extremity Exam: Normal Back/Spine/Pelvis Exam Back Exam: Normal Skin Exam Skin Exam: Normal Neurological Exam Neurological Exam: Normal Psychiatric Exam Psychiatric Exam: Normal Results Hemoglobin/Hematocrit: Hgb 11.2 g/dL (11.2-15.7) 04/26/21 07:49 Hct 35.5 % (36.0-46.0) L 04/26/21 07:49 Abnormal Lab Findings: Abnormal Labs 04/25/21 04/26/21 06:25 07:49 Hct 35.5 L MCHC 31.5 L RDW 19.5 H 19.8 H
--- NOTE | 2021-04-26 08:09 | DSE_ITS ---
Date of service: 04/26/21 Time of Service: 08:09 DS: Diagnosis Discharge Diagnosis (1) Term delivered: Status: Acute Discharge Plan Disposition Patient Disposition: HOME Condition: Good Discharge Details Reason For Visit: term 1 abor Admit Date/Time: 04/25/21 05:54 Admit Provider: Jessenia Inman Attending Provider: Jessenia Inman Primary Care Provider: Jeni Alvarez Hospital Course Hospital Course: , nml pp course Home Meds and New Rx's Prescriptions: No Action ascorbic acid (vitamin C) 500 mg capsule 1,000 mg PO DAILY RF: 0 multivitamin [Daily Multi-Vitamin] Tablet 2 tab PO DAILY RF: 0 biotin 2,500 mcg capsule See Rx Instructions PO DAILY RF: 0 levomefolate calcium [L-Methylfolate] 7.5 mg tablet See Rx Instructions PO DAILY RF: 0 blood builder PO RF: 0 omeprazole magnesium [Prilosec OTC] 20 mg tablet,delayed release (DR/EC) 20 mg PO DAILY Qty: 60 RF: 0 (DME) breast pump Device See Rx Instructions .ROUTE .MEDSUPPLY Qty: 1 RF: 0 Discharge Instructions Additional Instructions: Please keep your 2 and 6 wk appt's with the boarding specialist. They will be scheduled as in-person but Telehealth is an option if you prefer, unless lab tests and/or examination are required. Please call for any question or concern. Stand Alone Forms: BC Instructions, NB Instructions, BC Post Vaginal Deliver Activity:: Activity as Tolerated Equipment/Supplies:: No Equipment Needed Diet:: Normal Diet Discharge Orders Discharge Orders: Discharge Order (Routine); Ordered 04/26/21 Ordered By: Jessenia Inman OB:DS Summary Summary Vaginal Delivery Method: Spontaneaous Episiotomy Description: None Laceration Description: Perineal Laceration Extension: First Degree Contraception Discussed Contraception Discussed: Yes Contraceptive Plan: Foam/Condoms and Vasectomy, [place] Infant Gender-Baby A: Female weight: 9 lb 0.094 oz Status at Discharge Functional status at discharge: independent ambulation Overall status at discharge: patient is progressing back to baseline Mental Status: mental status grossly normal Speech and Movement: speech and movement normal and speech clear Mood: congruent mood Affect: normal affect Exam Physical Exam Vital signs: Temp Pulse Resp BP Pulse Ox 98.1 F 57 L 18 112/74 98 04/26/21 07:49 04/26/21 07:49 04/26/21 07:49 04/26/21 07:49 04/26/21 07:49 Constitutional Constitutional: no acute distress HEENT Exam HEENT Exam: Normal Neck Exam Neck Exam: Normal Breast Exam Bilateral: Breast Exam: Normal and Soft Respiratory Exam Respiratory Exam: Normal Cardiovascular Exam Cardiovascular Exam: Normal Abdominal Exam Abdomen: Diastasis (4 finger diastasis) Fundal Exam Fundus: Below Umbilicus and Firm Rectal Exam Rectal Exam: Normal Exam Perineum: Normal and Repair Intact Extremities Exam Extremity Exam: Normal Back/Spine/Pelvis Exam Back Exam: Normal Skin Exam Skin Exam: Normal Neurological Exam Neurological Exam: Normal Psychiatric Exam Psychiatric Exam: Normal [facility] Medical History (Updated 04/26/21 @ 08:05 by Jessenia Inman) Anemia affecting in third trimester Neoplasm of unspecified nature of bone, soft tissue, 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 Oral contraception initial prescription Postnasal drip (11/07/16) Routine follow-up 6 wks PP Is pumping breastmilk so baby is getting both breastmilk and formula No breast problems currently PAP done 2017 and nml, next one due in 3 yrs (had abn PAP 2008) Pt desires PAP q 2 yrs for now, will have done in 2020. Seeing building associate for acne @ [facility] [place] next month. Desires POP's for contraception No sexually active yet, stitches have healed well. Nml bowel and bladder function Given [employer] website address so she can look up dermatology meds Satisfied with experience, EPDS score is 0 Rx sent for POP to pharmacy Scoliosis brace as teen. Social History Smoking/Tobacco Use Status: Never Smoking risk assessment performed?: Yes Alcohol Intake: never Drug use: Never Substance use type: does not use, former substance user, marijuana, crack/cocaine, heroin, amphetamines, hallucinogens, tranquilizers, sedatives, opiates, painkillers, club/solar designer drugs, inhalants, IV drugs, methamphetamine, prescription drug, unknown and other Household members: spouse current occupation: dentist Do you think of yourself as: straight/heterosexual What is your relationship status?: Panel score (0-1 are the most socially isolated patients): 1 What type of physical activity do you participate in: normal ROM and activity Special joe needs: Yes Agree to transfusion: Yes Female Reproductive History Menstrual Duration of menses: 6-7 days control method: none History History 3 Para 2 Hx # Term Pregnancies 2 Multiple births 0 Hx # Pregnancies 0 Ectopic pregnancies 0 AB induced 0 Hx Number of Living Children 2 AB spontaneous 0 Past Pregnancies Del. Date GA/Weeks # Outcome Route Wgt Sex Labor Lgth Anesthes ia Location Prov Complic Unknown 10/03/09 40 No Successful vaginal 8 lb Female other 02/17/19 38 No Successful vaginal [address] [facility] Babita Longoria CNM Delivery Date: No notes to display Delivery Date: 10/03/09 broken tailbone from delivery, augmentation of labor. Eliu Kaur Delivery Date: 02/17/19 epidural; shallow 2nd degree laceration, repaired w/suture; Placenta had marked calcification on maternal surface. Bright bleeding and clots after placenta, pit 20 Units infused rapidly continued to have small amounts of bright bleeding, misoprostol 400 mcg sublingual with good effect Tegan Morel DS: Data Vitals/I&O Vitals and I&O: Vital Signs Temperature 98.1 F 04/26/21 07:49 Pulse 57 L 04/26/21 07:49 Pulse Rhythm Regular 04/26/21 07:50 Respiratory Rate 18 04/26/21 07:49 Respiratory Depth Normal 04/25/21 07:24 Blood Pressure 112/74 04/26/21 07:49 Blood Pressure Mean 86 04/26/21 07:49 Pulse Oximetry 98 04/26/21 07:49 Oxygen Delivery Method Room Air 04/25/21 07:22 Oxygen Flow Rate 0 04/25/21 07:22 Pain Level 3 04/26/21 07:49 Intake & Output 04/25/21 04/25/21 04/26/21 11:59 23:59 11:59 Intake Total 500 / 500 1050 / 1050 Output Total 700 / 700 1999 Balance -200 / -200 -950 / -950 Weight 123 lb 7.342 oz Intake: IV 500 / 500 Oral 500 / 500 550 / 550 Output: Urine 700 / 700 1999 Other: Urine Color Yellow Data Completed and Pending Labs on day of discharge: Labs from last 24 hours 04/26/21 04/25/21 07:49 07:10 WBC 10.78 RBC 3.98 Hgb 11.2 Hct 35.5 L MCV 89.2 MCH 28.1 MCHC 31.5 L RDW 19.8 H Plt Count 200 MPV 9.9 SARS-CoV-2 (PCR) Negative
--- NOTE | 2021-04-26 16:45 | W.ANESPOSTOP ---
Postoperative Evaluation Date, Time and Location Date Performed: 04/26/21 Time Performed: 16:45 Patient Location: Day Surgery Unit Vital Signs Most Recent Imported Vital Signs: Most Recent Vital Signs Temp Pulse Resp BP Pulse Ox 36.7 C 57 L 18 112/74 98 04/26/21 07:49 04/26/21 07:49 04/26/21 07:49 04/26/21 07:49 04/26/21 07:49 Pain Score Most Recent Pain Score: Most Recent Pain Score Pain Level [Bilateral Abdomen] 3 04/26/21 07:49 Pain Level 3 04/26/21 07:30 Assessment Mental Status: Awake (Alert & Oriented to Patient Baseline) Airway and Respiratory Function: Patent airway with normal (patient baseline) respiratory exam Cardiovascular Function: Hemodynamically Stable Hydration Status: Adequately Hydrated Nausea & Vomiting: No Nausea or Vomiting Pain: Pt. Denies Any Pain Peripheral Nerve Block: Patient did not receive a nerve block
== END 2021-04-26 11:30 | disposition home or self-care (01) | DRG 807 ==
PROVIDERS: Admitting Provider Advanced Practice Midwife; PCP Nurse Practitioner Family; Visit Provider Advanced Practice Midwife
DX: O69.81X0 Labor and delivery complicated by cord around neck, without compression, not applicable or unspecified (principal); Z37.0 Single live birth; O70.0 First degree perineal laceration during delivery; Z3A.39 39 weeks gestation of pregnancy
CPT/HCPCS: 36415; 85027; 86850; 86900; 86901; 87635; J2590; J3010

== ENCOUNTER 2023-06-02 03:52 | Outpatient (CLI) | payer OTHER, SELFPAY ==
[2023-06-02 09:28] LABS: Abs Immature Grans 0.01 10^3/uL (0.0-0.06); Absolute Basophil Count 0.06 10^3/uL (0.0-0.2); Absolute Eosinophil Count 0.07 10^3/uL (0.0-0.7); Absolute Lymphocyte Count 2.23 10^3/uL (1.2-3.4); Absolute Monocyte Count 0.39 10^3/uL (0.1-0.8); Absolute Neutrophil Count 2.19 10^3/uL (1.2-6.7); Basophils % 1.2; Eosinophils % 1.4; HCT 41.5 % (36.0-46.0); HGB 13.6 g/dL (11.2-15.7); Immature Grans % 0.2; Lymphocytes % 45.1; MCH 29.9 pg (27.0-33.0); MCHC 32.8 % (32.0-36.0); MCV 91 fL (80-95); MPV 9.3 fL (8.0-11.0); Monocytes % 7.9; Neutrophils % 44.2; Platelet Count 311 10^3/uL (130-400); RBC 4.55 10^6/uL (3.93-5.22); RDW 12.8 % (11.7-14.6); RDW-SD 42.5 fL; WBC 4.95 10^3/uL (4.4-10.8)
[2023-06-02 10:06] LABS: Anion Gap 5.6 mmol/L (3-11); BUN 14 mg/dL (7-18); CO2 29.4 mmol/L (21.0-32.0); CREATININE 0.8 mg/dL (0.55-1.02); Calcium 9.3 mg/dL (8.5-10.1); Chloride 103 mmol/L (98-107); Estimated GFR 97.87 (mL/min/1.73m2); Glucose 84 mg/dL (74-106); Potassium 4.1 mmol/L (3.5-5.1); Sodium 138 mmol/L (136-145); TSH (W/Ref FT4) 1.14 uIU/mL (0.36-3.74)
== END 2023-06-02 03:53 | disposition home or self-care (01) ==
LOC: LBO 03:53
PROVIDERS: Obstetrics & Gynecology; PCP Nurse Practitioner Family; Visit Provider Family Medicine
DX: Z00.00 Encounter for general adult medical examination without abnormal findings (principal); D22.9 Melanocytic nevi, unspecified
CPT/HCPCS: 36415; 80048; 84443; 85025

== ENCOUNTER 2023-06-23 15:40 | Outpatient (REF) | payer OTHER, SELFPAY ==
--- NOTE | 2023-06-23 15:10 | PAPFT_PTH ---
PATIENT: Dalia Jones LOC: [facility] U#:[id number] AGE/SX: 37/F ROOM: RE06/23/[address]: Tegan Acosta DO : 1985 BED: DIS: 06/23/2023 SPEC #: [id number] RECD: 06/27/23 15:40 STATUS: KERLINE REQ #: [id number] BEN: 06/23/23 15:[address]: Tegan Acosta DEPT: [facility] Cytology RECD BY: Kristie Pan ENTERED: 06/27/23 15:40 SP TYPE: PAPFT OTHR DR: Jeni Alvarez Tissues: 1 - CX/ENDOCX FOR PAP SMEARS Procedures: PAP THIN PREP/[facility] Screening HPV DNA PROBE Comments: [id number]
== END 2023-06-23 15:41 | disposition home or self-care (01) ==
LOC: LBN 15:40
PROVIDERS: PCP Nurse Practitioner Family; Visit Provider Obstetrics & Gynecology
DX: Z12.4 Encounter for screening for malignant neoplasm of cervix (principal); Z11.51 Encounter for screening for human papillomavirus (HPV)
CPT/HCPCS: 88142; 87624

== ENCOUNTER 2025-05-28 15:06 | Outpatient (REF) | payer OTHER, SELFPAY ==
[2025-05-28 15:11] LABS: ALT 25 U/L (14-59); AST 21 U/L (15-37); Albumin 4.1 g/dL (3.4-5.0); Alkaline Phosphatase 39 U/L (46-116); Anion Gap 5.5 mmol/L (3-11); BUN 12 mg/dL (7-18); Bilirubin, Total 0.5 mg/dL (0.2-1.0); CO2 30.5 mmol/L (21.0-32.0); Calcium 9.4 mg/dL (8.5-10.1); Calculated LDL 94 mg/dL (<100); Chloride 103 mmol/L (98-107); Cholesterol 181 mg/dL (<200); Estimated GFR 113.46 (mL/min/1.73m2); Glucose 86 mg/dL (74-106); HDL Cholesterol 72 mg/dL (>or=50); Potassium 4.8 mmol/L (3.5-5.1); Sodium 139 mmol/L (136-145); Total Protein 7.2 g/dL (6.4-8.2); Triglyceride 78 mg/dL (<150)
== END 2025-05-28 15:07 | disposition home or self-care (01) ==
LOC: NCHCN 15:06
PROVIDERS: PCP Nurse Practitioner Family; Visit Provider Family Medicine
DX: Z00.00 Encounter for general adult medical examination without abnormal findings (principal)
CPT/HCPCS: 80053; 80061